=== PATIENT | male | born 1940 | race African-American/Black ===

== ENCOUNTER 2018-05-26 12:00 | Emergency (ER) | payer OTHER ==
[2018-05-26 12:40] VITALS: BP 155/78; PULSE 79; TEMP 98.1; BMI 32.3
[2018-05-26] MEDS ORDERED: KETOROLAC TROMETHAMINE 30 MG/1 ML VIAL IM ONE (13:13)
[2018-05-26] MEDS ORDERED: predniSONE 20 MG TABLET (UD) PO ONE (13:16)
--- NOTE | 2018-05-26 13:20 | PDOC ---
History of Present Illness - General Chief Complaint: Pain, Acute Stated Complaint: RT SIDE PAIN Time Seen by Provider: 05/26/18 13:07 History Source: Patient Exam Limitations: No Limitations - History of Present Illness Initial Comments: 05/26/18 13:18 77 yr male history of HTN, cardiac stent presents with 3 weeks right lower back pain radiates to buttock worse with sitting to standing and walking. neg abd pain neg nvd neg bowel or bladder dysfunction pt has had low back pain in the past, worked in sanitation for many years. pt took aspirin with no relief. neg leg numbness or tingling. Past History - Past Medical History Allergies/Adverse Reactions: Allergies Allergy/AdvReac Type Severity Reaction Status Date / Time No Known Allergies Allergy Verified 05/26/18 12:37 Home Medications: Ambulatory Orders Cyclobenzaprine HCl [Flexeril -] 5 mg PO HS PRN #7 tablet 05/26/18 Prednisone [Deltasone] See Taper PO DAILY #30 tablet 05/26/18 COPD: No HTN: Yes - Suicide/Smoking/Psychosocial Hx Smoking History: Former smoker Have you smoked in the past 12 months: No If you are a former smoker, when did you quit?: 40 years ago Information on smoking cessation initiated: No Review of Systems - Review of Systems Able to Perform ROS?: Yes Is the patient limited [place] Citizen proficient: No Constitutional: No: Symptoms Reported HEENTM: No: Symptoms Reported Respiratory: No: Symptoms reported Cardiac (ROS): No: Symptoms Reported ABD/GI: No: Symptoms Reported : No: Symptoms Reported Musculoskeletal: Yes: Symptoms Reported, Other (right hip, buttock pain soft tissue no bony tenderness, reprodiced with standing up ) *Physical Exam - Vital Signs Last Vital Signs Temp Pulse Resp BP Pulse Ox 98.1 F 79 18 155/78 96 05/26/18 12:37 05/26/18 12:37 05/26/18 12:37 05/26/18 12:37 05/26/18 12:37 - Physical Exam General Appearance: Yes: Nourished, Appropriately Dressed HEENT: positive: EOMI, JAMAL Neck: positive: Supple Respiratory/Chest: positive: Lungs Clear, Normal Breath Sounds Cardiovascular: positive: Regular Rhythm, Regular Rate Gastrointestinal/Abdominal: positive: Normal Bowel Sounds, Soft. negative: Tender Rectal Exam: positive: deferred Musculoskeletal: positive: Normal Inspection. negative: CVA Tenderness, CVA Tenderness (R), CVA Tenderness (L), Decreased Range of Motion, Vertebral Tenderness, Other Extremity: positive: Normal Capillary Refill, Normal Inspection, Normal Range of Motion, Other (pos right side SLR pain at 45 degrees ) Integumentary: positive: Normal Color, Dry, Warm Neurologic: positive: Fully Oriented, Alert, Normal Mood/Affect, Normal Response , Motor Strength 5/5 Moderate Sedation - Procedure Monitoring Vital Signs: Procedure Monitoring Vital Signs Temperature 98.1 F 05/26/18 12:37 Pulse Rate 79 05/26/18 12:37 Respiratory Rate 18 05/26/18 12:37 Blood Pressure 155/78 05/26/18 12:37 O2 Sat by Pulse Oximetry (%) 96 05/26/18 12:37 ED Treatment Course - RADIOLOGY Radiology Studies Ordered: Category Date Time Status SPINE-LUMBAR ONLY [RAD] Stat Radiology 05/26/18 13:15 Ordered Medical Decision Making - Medical Decision Making 05/26/18 13:24 cc: lower right side sciatica pain reproduced with movement , SLR positive pt on eliquis will not give nsaids short course steroid and tylenol follow up with orthopedist as directed lumbar spine xray 05/29/18 08:51 xray reviewed. *DC/Admit/Observation/Transfer Diagnosis at time of Disposition: Sciatica Qualifiers: Laterality: right Qualified Code(s): M54.31 - Sciatica, right side - Discharge Dispostion Disposition: HOME Condition at time of disposition: Good - Prescriptions Prescriptions: Cyclobenzaprine HCl [Flexeril -] 5 mg PO HS PRN #7 tablet PRN Reason: Muscle Spasms Prednisone [Deltasone] See Taper PO DAILY #30 tablet - Referrals Referrals: Isra Bautista DO [Staff Physician] - - Patient Instructions Additional Instructions: follow with the orthopedist, call today to set up appointment take the prednisone as directed , next dose tomorrow you can also take tylenol 650mg every 4-6hrs for pain as needed take the flexeril for muscle spasm as needed before sleep avoid any ibuprofen or Aspirin as this can interact with your Eliquist return to ER for any worsening symptoms - Post Discharge Activity
[2018-05-26] MEDS ORDERED: predniSONE 20 MG TABLET (UD) ONE (13:57)
== END 2018-05-26 14:05 | disposition home or self-care (01) ==
LOC: JERFT 12:00
DX: M54.41 Lumbago with sciatica, right side (principal); I25.10 Atherosclerotic heart disease of native coronary artery without angina pectoris; I10 Essential (primary) hypertension; Z95.5 Presence of coronary angioplasty implant and graft
CPT/HCPCS: 72100-TC-FY; 99281-25

== ENCOUNTER 2018-09-08 15:41 | Emergency (ER) | payer OTHER ==
[2018-09-08 16:01] VITALS: TEMP 98.4; BMI 36.1
--- NOTE | 2018-09-08 16:03 | PDOC ---
Rapid Medical Evaluation Chief Complaint: Pain, Acute Time Seen by Provider: 09/08/18 15:57 Medical Evaluation: Allergies Allergy/AdvReac Type Severity Reaction Status Date / Time No Known Allergies Allergy Verified 05/26/18 12:37 09/08/18 16:00 I have performed a brief in-person evaluation of this patient. The patient presents with a chief complaint of: h/o HTN presenting with pain to right great toe worse with ambulation today. no trauma or injury to foot or toe. Pertinent physical exam findings: elevated blood pressure of 160/104. mild TTP to MCTP of right great toe. no erythema or swelling I have ordered the following: x-ray of RT toe and foot The patient will proceed to the ED for further evaluation. Discharge Disposition - Diagnosis Pain of right great toe HTN (hypertension) Qualifiers: Hypertension type: essential hypertension Qualified Code(s): I10 - Essential ( primary) hypertension - Discharge Dispostion Condition at time of disposition: Stable - Referrals - Patient Instructions - Post Discharge Activity
[2018-09-08] MEDS ORDERED: INDOMETHACIN 50 MG CAPSULE PO ONE (17:00)
--- NOTE | 2018-09-08 17:29 | PDOC ---
History of Present Illness - General Chief Complaint: Pain, Acute Stated Complaint: WEAKNESS/ [place] PAIN Time Seen by Provider: 09/08/18 15:57 History Source: Patient - History of Present Illness Occurred: reports: this morning Lower Extremity Pain Location: right: 1st toe Past History - Past Medical History Allergies/Adverse Reactions: Allergies Allergy/AdvReac Type Severity Reaction Status Date / Time No Known Allergies Allergy Verified 05/26/18 12:37 Home Medications: Ambulatory Orders Cyclobenzaprine HCl [Flexeril -] 5 mg PO HS PRN #7 tablet 05/26/18 Prednisone [Deltasone] See Taper PO DAILY #30 tablet 05/26/18 Prednisone [Deltasone] 20 mg PO DAILY #11 tablet 09/08/18 Tramadol HCl 50 mg PO Q6H #10 tablet MDD 200 mg 09/08/18 COPD: No HTN: Yes - Surgical History Gastric Stapling: No - Immunization History Immunization Up to Date: No - Suicide/Smoking/Psychosocial Hx Smoking History: Never smoked Have you smoked in the past 12 months: No If you are a former smoker, when did you quit?: 40 years ago Information on smoking cessation initiated: No Hx Alcohol Use: No Drug/Substance Use Hx: No Review of Systems - Review of Systems Constitutional: No: Chills, Fever, Malaise Respiratory: No: Shortness of Breath Cardiac (ROS): No: Chest Pain, Lightheadedness, Palpitations Musculoskeletal: Yes: Joint Pain, Joint Swelling *Physical Exam - Vital Signs Last Vital Signs Temp Pulse Resp BP Pulse Ox 98.4 F 81 16 160/104 H 98 09/08/18 15:58 09/08/18 15:58 09/08/18 15:58 09/08/18 15:58 09/08/18 15:58 - Physical Exam General Appearance: Yes: Appropriately Dressed, Mild Distress HEENT: positive: Normal Voice Respiratory/Chest: positive: Lungs Clear, Normal Breath Sounds. negative: Respiratory Distress Cardiovascular: positive: Regular Rate, S1, S2 Extremity: positive: Other (swelling w/ significant ttp to R 1st MTP joint, c/w ? gout, no erythema to appreciate, no open wound or e/o tinea) Integumentary: positive: Dry, Warm Neurologic: positive: Fully Oriented, Alert, Normal Mood/Affect ED Treatment Course - LABORATORY CBC & Chemistry Diagram: 09/08/18 17:25 09/08/18 17:25 Medical Decision Making - Medical Decision Making 09/08/18 17:16 78-year-old male, h/o HTN, here with pain and swelling to R great toe since this a.m., making it difficult to bear weight with his cane. No trauma. Denies history of same, but does report that he has had chronic b/l foot pain and tingling and has seen by multiple doctors including specialists w/ no clear diagnosis. No h/o gout. Denies malaise, f/c See exam Podagra Gout suspected Unlikely infxn No trauma -XR -labs including uric acid -dose of indomethacin (no known renal dze w/ normal labs recently in pmd's office per ) -reassess Elevated BP Compliant w/ meds per pt Possibly related to pain -will control pain and reassess 09/08/18 17:31 XR w/ e/o gout to R 1st MTP joint per radiology report. Labs pending. Will hold off on NSAID/colchicine given older age and more risk for complications. Will start on steroids if discharged 09/08/18 18:23 No leukocytosis. Uric acid wnl. Cr 1.6 (no old to compare) w/ nl electrolytes. On reassessment, patient reports improvement in pain and appears to have an easier time bearing weight w/ his cane. Rpt BP 157/100. Asymptomatic from BP standpoint and reports compliancy with meds. Will discharge on steroid taper. Will also add small dose of tramadol for better pain control at home. Patient to return to ED if symptoms worsen, otherwise to follow up with his PMD tomorrow 09/08/18 18:46 *DC/Admit/Observation/Transfer Diagnosis at time of Disposition: Podagra - Discharge Dispostion Disposition: HOME Condition at time of disposition: Improved - Prescriptions Prescriptions: Prednisone [Deltasone] 20 mg PO DAILY #11 tablet Tramadol HCl 50 mg PO Q6H #10 tablet MDD 200 mg - Referrals Referrals: Cade Preciado [Primary Care Provider] - - Patient Instructions Printed Discharge Instructions: Gout Additional Instructions: X-ray show signs of possible gout. Please take medications as directed Your kidney function tests was mildly elevated. You were given a copy of all your labs to follow-up with your PMD. If symptoms worsen, return to ED as discussed, otherwise follow-up with your PMD in the a.m. - Post Discharge Activity
[2018-09-08 17:35] LABS: BASO % 1.5 % (0-2.0); EOS % 5.9 % (0-4.5); HEMATOCRIT 43.6 % (35.4-49); HEMOGLOBIN 14.5 GM/dL (11.7-16.9); LYMPH % 17.3 % (8-40); MCHC 33.3 g/dl (32.0-35.9); MEAN PLT VOLUME 8.5 fl (7.5-11.1); MONO % 12.3 % (3.8-10.2); PLATELET COUNT 223 K/MM3 (134-434); RBC 4.69 M/mm3 (4.00-5.60); RDW 13.8 % (11.9-15.9); WHITE BLOOD COUNT 6.8 K/mm3 (4.0-10.0)
[2018-09-08] MEDS ORDERED: predniSONE 20 MG TABLET (UD) PO ONE (17:38)
[2018-09-08] MEDS ORDERED: traMADol HCL 50 MG TABLET PO ONE (17:40)
[2018-09-08] MEDS ORDERED: traMADol HCL 50 MG TABLET ONE (17:45)
[2018-09-08] MEDS ORDERED: predniSONE 20 MG TABLET (UD) ONE (17:45)
[2018-09-08 17:56] LABS: ALBUMIN 3.6 g/dl (3.4-5.0); ALK PHOS 85 U/L (45-117); ANION GAP 5 MMOL/L (8-16); BILIRUBIN,TOTAL 0.6 mg/dL (0.2-1); BLOOD UREA NITROGEN 18 mg/dL (7-18); CALCIUM 9.2 mg/dL (8.5-10.1); CHLORIDE 107 mmol/L (98-107); CO2 28 mmol/L (21-32); CREATININE 1.6 mg/dL (0.55-1.3); GLUCOSE,RANDOM 90 mg/dL (74-106); POTASSIUM 4.2 mmol/L (3.5-5.1); SGOT/AST 9 U/L (15-37); SGPT/ALT 16 U/L (13-61); SODIUM 140 mmol/L (136-145); TOT PROT 7.4 g/dl (6.4-8.2); URIC ACID 5.9 mg/dL (2.6-7.2)
[2018-09-08 18:42] VITALS: PULSE 70
[2018-09-08 18:48] VITALS: BP 157/100
== END 2018-09-08 18:49 | disposition home or self-care (01) ==
LOC: JER 15:41
DX: M10.9 Gout, unspecified (principal); I10 Essential (primary) hypertension
CPT/HCPCS: 36415; 73630-TC-RT-FY; 80053; 84550; 85025; 99283-25

== ENCOUNTER 2020-03-18 06:34 | Day surgery (SDC) | payer OTHER, SELFPAY ==
[2020-03-14 13:09] VITALS: BMI 34.2
--- OUTSIDE RECORDS SUMMARY | 2020-03-18 06:39 | XMS ---
:1940 Author [facility] Support Name Relationship Address Phone KAREN DAUGHTER [address] [place] [address] RE Unavailable Unavailable Unavailable KAREN [address] [place] [address] KAREN Spouse [address] [place] [address] Re-disclosure Warning The records that you are about to access may contain information from federally- assisted alcohol or drug abuse programs. If such information is present, then the following federally mandated warning applies: This information has been disclosed to you from records protected by federal confidentiality rules (42 CFR part 2). The federal rules prohibit you from making any further disclosure of this information unless further disclosure is expressly permitted by the written consent of the person to whom it pertains or as otherwise permitted by 42 CFR part 2. A general authorization for the release of medical or other information is NOT sufficient for this purpose. The Federal rules restrict any use of the information to criminally investigate or prosecute any alcohol or drug abuse patient.The records that you are about to access may contain highly sensitive health information, the redisclosure of which is protected by Article 27-F of the [facility] Public Health law. If you continue you may haveaccess to information: Regarding HIV / AIDS; Provided by facilities licensed or operated by the [facility] Office of Mental Health; or Provided by the [facility] Office for People With Developmental Disabilities. If such information is present, then the following [facility] mandated warning applies: This information has been disclosed to you from confidential records which are protected by state law. State law prohibits you from making any further disclosure of this information without the specific written consent of the person to whom it pertains, or as otherwise permitted by law. Any unauthorized further disclosure in violation of state law may result in a fine or nursing home sentence or both. A general authorization for the release of medical or other information is NOT sufficient authorization for further disclosure. Insurance Providers Payer name Policy type Policy ID Covered Covered alliance party's Policy P geneva / Coverage alliance party ID relationship to [place] [employer] ormation type puente HIP MEDICARE [id number] SP [id number] VIP MY MEDICARE [id number] SP [id number] COVID-19 SP SP (BUS OFF USE ONLY) [facility] 2 [id number] [facility] 1 [id number] [employer] [facility] [id number] Results ID Date Data Source [id number] 03/14/2020 09:35:00 AM EDT [facility] Name Value Range Interpretation Description Data Sup porting Code Source(s) Document(s ) SARS [facility] coronavirus 2 RNA This lab was ordered by [facility] and reported by [facility]. ID Date Data Source [id number] 08/26/2019 10:50:00 PM EDT [facility] Name Value Range Interpretation Description Data Sup porting Code Source(s) Document(s ) SARS [facility] CORONAVIRUS 2 RNA This lab was ordered by [facility] and reported by [facility]. Procedure
[2020-03-18] MEDS ORDERED: ACETAMINOPHEN 325 MG TABLET (FP) PO PRN (07:27)
[2020-03-18] MEDS ORDERED: CYCLOPENTOLATE HCL 1% OPHTH SOLN 2 ML BOTTLE OP SCH (07:30)
[2020-03-18] MEDS ORDERED: PHENYLEPHRINE 2.5% OPHTH SOLN 15 ML BOTTLE OP SCH ×2 (07:30→09:30)
[2020-03-18] MEDS ORDERED: OFLOXACIN 0.3% OPHTHALMIC SOLUTION 5 ML BOTTLE OP SCH (07:30)
[2020-03-18] MEDS ORDERED: TROPICAMIDE 1% OPHTH SOLN 15 ML BOTTLE OP SCH ×2 (07:30→09:30)
[2020-03-18] MEDS ORDERED: KETOROLAC TROMETHAMINE 0.5% EYE DROP 1 DROP DROPS OP SCH (07:30)
[2020-03-18] MEDS ORDERED: PHENYLEPHRINE 2.5% OPHTH SOLN 15 ML BOTTLE ONE (07:43)
[2020-03-18] MEDS: CIPROFLOXACIN 0.3% EYE DROPS 5 ML BOTTLE ONE ×3 (08:00→08:10)
[2020-03-18] MEDS: CYCLOPENTOLATE 2% OPHTH SOLN 2 ML BOTTLE ONE ×3 (08:00→08:10)
[2020-03-18] MEDS: TROPICAMIDE 1% OPHTH SOLN 15 ML BOTTLE ONE ×3 (08:00→08:10)
[2020-03-18] MEDS ORDERED: BSS (NA/CA/MG/K) BALANCED SALT SOLUTION OPHTH SOLN 15 ML BOTTLE ONE (08:21)
[2020-03-18] MEDS ORDERED: MIDAZOLAM HCL 2 MG/2 ML SINGLE DOSE VIAL ONE (08:26)
[2020-03-18] MEDS ORDERED: METOPROLOL TARTRATE 5 MG/5 ML VIAL ONE (08:26)
[2020-03-18] MEDS ORDERED: CYCLOPENTOLATE 2% OPHTH SOLN 2 ML BOTTLE OP SCH (09:30)
[2020-03-18] MEDS ORDERED: CIPROFLOXACIN HCL 0.3% OPHTH 2.5ML BOTTLE OP SCH (09:30)
[2020-03-18] MEDS ORDERED: BACITRACIN/POLYMYXIN OPH OINT 3.5 GM TUBE ONE (09:38)
[2020-03-18] MEDS ORDERED: BETAXOLOL HCL 0.25% OPHTHALMIC 10 ML DROPSBTL ONE (09:38)
[2020-03-18] MEDS ORDERED: EPI-SHUGARCAINE (EPINEPHRINE 0.025% & LIDOCAINE-PF 0.75%) 4ML ONE (09:39)
[2020-03-18] MEDS ORDERED: ACETYLCHOLINE 1:100 INTRA-OCUL 20 MG/2 ML KIT ONE (09:39)
[2020-03-18] MEDS ORDERED: NEO/POLYMYX B SULF/DEXAMETH OPHTHALMIC 5ML BOTTLE ONE (09:39)
[2020-03-18] MEDS ORDERED: POVIDONE-IODINE 5% OPHTHALMIC PREP 30 ML SOLUTION ONE (09:39)
[2020-03-18] MEDS ORDERED: TETRACAINE 0.5% OPHTH SOLN 2 ML BOTTLE ONE (09:39)
[2020-03-18 09:47] VITALS: BP 138/72; PULSE 66; TEMP 98
[2020-03-18] MEDS ORDERED: CYCLOPENTOLATE 2% OPHTH SOLN 2 ML BOTTLE OD SCH (10:45)
[2020-03-18] MEDS ORDERED: PHENYLEPHRINE 2.5% OPHTH SOLN 15 ML BOTTLE OD SCH (10:45)
[2020-03-18] MEDS ORDERED: TROPICAMIDE 1% OPHTH SOLN 15 ML BOTTLE OD SCH (10:45)
[2020-03-18] MEDS ORDERED: CIPROFLOXACIN 0.3% EYE DROPS 5 ML BOTTLE OD SCH (10:45)
--- NOTE | 2020-03-18 19:02 | OPR ---
Date of Operation: 03/18/20 Surgeon: Yaya Rodriguez MD Diagnosis: Visually significant nuclear cataract, small pupil Right eye Procedure: Complex Cataract extraction with Posterior Chamber Lens Implant, stabilization of small pupil with Vis[employer]c I-Ring pupil batch room technician device Right eye Complications: None Procedure: After appropriate consent and clearance the patient was brought to the operating room and administered fractional anesthesia. The patient was prepped and draped in a sterile manner. Attention was turned to the surgical eye. . A paracentesis site was made. Intracameral anesthetic was administered. Viscoelastic was injected to maintain the anterior chamber depth. A keratome was used to make a self sealing incision. 5 pupil hooks were placed to stabilize the pupil in this patient on flomax with floppy iris syndrome. A continuous tear capsulorrhexis was partially made using a cystotome and utrata forceps. The remainder of the anterior capsulorrhexis was created with the cystotome. Wasta dissection and hydro delineation were performed with BSS in a syringe with a cannula. The lens nucleus was then phaco-emulsified and aspirated from the eye. Cortical cleanup was performed using the irrigation and aspiration probe. Additional viscoelastic was injected into the eye. The lens implant was placed with both haptics and the optic in the endocapsular bag. The pupil hooks were removed from the eye. Residual viscoelastic was removed from the eye using the irrigation and aspiration probe. The wound was tested to be water-tight. Antibiotic was injected into the anterior chamber. DISPOSITION: The patient was discharged to the recovery room in stable condition.
--- NOTE | 2020-03-18 19:05 | HP ---
- Patient Date of Surgery: 03/18/20 Scheduled Surgical Procedure: Phacoemulsification and cataract extraction with PCIOL Affected Side: Right Chief Complaint (Indication for surgery): Blurry Vision - Medical History Current Medications: Ambulatory Orders Albuterol Sulfate Inhaler - [Ventolin HFA Inhaler -] 1 puff IH Q6H PRN 08/27/19 Losartan Potassium 100 mg PO DAILY 08/27/19 Metoprolol Tartrate 100 mg PO BID 08/27/19 Tamsulosin HCl 0.4 mg PO DAILY 08/27/19 Apixaban [Eliquis] 5 mg PO BID 09/04/19 Nitrofurantoin Macrocrystal [Nitrofurantoin] 100 mg PO BID 03/14/20 Allergies/Adverse Reactions: Allergies Allergy/AdvReac Type Severity Reaction Status Date / Time No Known Allergies Allergy Verified 03/18/20 07:56 - Visual Acuity Right Eye: 20/40 Left Eye: 20/40 - Intraocular Pressure (IOP) Intraocular Pressure (mm/Hg) - Right eye: 16 Intraocular Pressure (mm/Hg)-Left eye: 17 - Segments Anterior segment: WNL Posterior segment: WNL - Impression Impression: Cataract Right Eye - Plan Plan: Phacoemulsification and cataract extraction - IOL Right eye Implant: Primary: [id number] 17.5
== END 2020-03-18 09:45 | disposition home or self-care (01) ==
LOC: FASU 06:34
PROVIDERS: ATTEND Ophthalmology
PROC: 08RJ3JZ Replacement of Right Lens with Synthetic Substitute, Percutaneous Approach (ICD-10-PCS; principal; 2020-03-18 08:37)
DX: H25.11 Age-related nuclear cataract, right eye (principal); H57.03 Miosis

== ENCOUNTER 2020-04-15 07:10 | Day surgery (SDC) | payer OTHER, SELFPAY ==
[2020-03-19 11:56] VITALS: BMI 34.2
[~2020-04-15 07:10] MED LIST: ACETAMINOPHEN 325 MG TABLET (FP) PO PRN
[2020-04-15] MEDS ORDERED: CIPROFLOXACIN 0.3% EYE DROPS 5 ML BOTTLE ONE (07:39)
[2020-04-15] MEDS ORDERED: CYCLOPENTOLATE 2% OPHTH SOLN 2 ML BOTTLE ONE (07:39)
[2020-04-15] MEDS ORDERED: TROPICAMIDE 1% OPHTH SOLN 15 ML BOTTLE ONE (07:39)
[2020-04-15] MEDS ORDERED: PHENYLEPHRINE 2.5% OPHTH SOLN 15 ML BOTTLE ONE (07:39)
[2020-04-15] MEDS: CIPROFLOXACIN HCL 0.3% OPHTH 2.5ML BOTTLE OP SCH ×3 (08:00→08:10)
[2020-04-15] MEDS: TROPICAMIDE 1% OPHTH SOLN 15 ML BOTTLE OP SCH ×3 (08:00→08:10)
[2020-04-15] MEDS: PHENYLEPHRINE 2.5% OPHTH SOLN 15 ML BOTTLE OP SCH ×3 (08:00→08:10)
[2020-04-15] MEDS: CYCLOPENTOLATE 2% OPHTH SOLN 2 ML BOTTLE OP SCH ×3 (08:00→08:10)
[2020-04-15] MEDS ORDERED: MIDAZOLAM HCL 2 MG/2 ML SINGLE DOSE VIAL ONE ×2 (09:04→09:17)
[2020-04-15] MEDS ORDERED: TRYPAN BLUE 0.5 ML DISP.SYRIN ONE (09:07)
[2020-04-15] MEDS ORDERED: ONDANSETRON 4 MG/2 ML VIAL ONE (09:12)
[2020-04-15] MEDS ORDERED: DEXAMETHASONE SOD PHOSPHATE 4 MG/1 ML VIAL ONE (09:12)
[2020-04-15] MEDS ORDERED: ACETYLCHOLINE 1:100 INTRA-OCUL 20 MG/2 ML KIT ONE (09:45)
[2020-04-15] MEDS ORDERED: NEO/POLYMYX B SULF/DEXAMETH OPHTHALMIC 5ML BOTTLE ONE (09:54)
[2020-04-15] MEDS ORDERED: BSS (NA/CA/MG/K) BALANCED SALT SOLUTION OPHTH SOLN 15 ML BOTTLE ONE (09:54)
[2020-04-15] MEDS ORDERED: CARBACHOL 0.01% INTRA-OCULAR 1.5 ML VIAL ONE (09:54)
[2020-04-15] MEDS ORDERED: TETRACAINE 0.5% OPHTH SOLN 2 ML BOTTLE ONE (09:54)
[2020-04-15] MEDS ORDERED: POVIDONE-IODINE 5% OPHTHALMIC PREP 30 ML SOLUTION ONE (09:55)
[2020-04-15] MEDS ORDERED: EPI-SHUGARCAINE (EPINEPHRINE 0.025% & LIDOCAINE-PF 0.75%) 4ML ONE (09:55)
[2020-04-15 10:18] VITALS: TEMP 98
[2020-04-15 10:31] VITALS: BP 115/77; PULSE 75
== END 2020-04-15 10:40 | disposition home or self-care (01) ==
LOC: FASU 07:10
PROVIDERS: ATTEND Ophthalmology
PROC: 08RK3JZ Replacement of Left Lens with Synthetic Substitute, Percutaneous Approach (ICD-10-PCS; principal; 2020-04-15 09:16)
DX: H25.22 Age-related cataract, morgagnian type, left eye (principal)

== ENCOUNTER 2020-09-03 17:26 | Emergency (ER) | payer OTHER ==
[2020-09-03 18:07] VITALS: TEMP 97.2; BMI 35.5
[2020-09-03 22:13] LABS: CHLORIDE 107 mmol/L (98-107); POTASSIUM 4.5 mmol/L (3.5-5.1); SODIUM 138 mmol/L (136-145)
[2020-09-03 22:15] LABS: CALCIUM 8.8 mg/dL (8.5-10.1)
[2020-09-03 22:16] LABS: ALBUMIN 3.6 g/dl (3.4-5.0); ANION GAP 6 MMOL/L (8-16); BLOOD UREA NITROGEN 23.6 mg/dL (7-18); CO2 26 mmol/L (21-32); GLUCOSE,RANDOM 82 mg/dL (74-106)
[2020-09-03 22:19] LABS: CREATININE 1.7 mg/dL (0.55-1.3); PHOSPHOROUS 3.1 mg/dL (2.5-4.9); SGOT/AST 14 U/L (15-37); SGPT/ALT 15 U/L (13-61)
[2020-09-03 22:21] LABS: BILIRUBIN,TOTAL 0.5 mg/dL (0.2-1); TOT PROT 7.1 g/dl (6.4-8.2)
[2020-09-03 22:22] LABS: ALK PHOS 90 U/L (45-117)
[2020-09-03 22:24] LABS: N-TERMINAL BNP 937.8 pg/ml (5-450)
[2020-09-03 22:37] LABS: EOS % 6.6 % (0-4.5); HEMATOCRIT 44.8 % (35.4-49); HEMOGLOBIN 14.8 GM/dL (11.7-16.9); LYMPH % 21.5 % (8-40); MCH 30.1 pg (25.7-33.7); MEAN CELL VOLUME 91.4 fl (80-96); MONO % 12.5 % (3.8-10.2); NEUT % 58.4 % (42.8-82.8); PLATELET COUNT 248 K/MM3 (134-434); RDW 14.3 % (11.9-15.9); WHITE BLOOD COUNT 6.5 K/mm3 (4.0-10.0)
[2020-09-03 22:57] VITALS: BP 149/84; PULSE 88
[2020-09-03] MEDS ORDERED: APIXABAN 5 MG TABLET PO SCH (23:30)
== END 2020-09-04 01:00 | disposition left against medical advice (07) ==
LOC: JER 17:26
DX: R06.02 Shortness of breath (principal)
CPT/HCPCS: 36415; 80053; 82550; 82553; 83735; 83880; 84100; 84484; 85025; 85379; 93005; 93010; 99285-25; C9803; U0003; U0005